=== PATIENT | male | born 1980 | race Caucasian/White ===

== ENCOUNTER 2016-10-24 11:48 | Emergency (ER) | payer OTHER ==
[2016-10-24] MEDS ORDERED: LIDOCAINE HCL 20 ML VIAL ONE (12:00)
[2016-10-24] MEDS ORDERED: DIPHTH,PERTUSS(ACELL),TET VAC 0.5 ML VIAL IM ONE ×2 (12:26→12:38)
[2016-10-24] MEDS ORDERED: NORMAL SALINE 1,000 ML IV ONE (12:29)
[2016-10-24 12:56] VITALS: BP 132/96
[2016-10-24 12:58] LABS: Hematocrit 43.6 % (42.0-52.0); Mean Cell Volume 83.5 fl (78-100); Mean Corpuscular Hemoglobin 28.7 pg (27-31); Mean Corpuscular Hgb Conc 34.4 g/dl (32-36); Mean Platelet Volume 10.6 fl (6.0-9.5); Neutrophil # 13.3 K/mm3 (1.3-6.0); Neutrophil % 82.8 % (42-75.0); Platelet Count 286 K/mm3 (150-450); Red Blood Count 5.22 M/mm3 (4.7-6.0); Red Cell Distribution Width 13.5 % (11.5-14.0); White Blood Count 16.1 K/mm3 (4.0-10.5)
[2016-10-24 13:07] LABS: Anion Gap 17.3 mmol/L (6.8-13.8); BUN/Creatinine Ratio 15.7 (9.0-21.6); Calcium * 8.8 mg/dL (7.9-10.9); Carbon Dioxide 21.2 mmol/L (24-32.6); Estimated Creat Clear 81.2; Potassium 3.5 mmol/L (3.4-4.6)
[2016-10-24 13:10] LABS: INR 1.09 INR (0.90-1.10); Prothrombin Time (Patient) 11.3 Seconds (9.4-11.4)
[2016-10-24] MEDS ORDERED: ONDANSETRON HCL/PF 2 MG/ML VIAL ONE (13:16)
[2016-10-24] MEDS ORDERED: ONDANSETRON HCL/PF 2 MG/ML VIAL IV ONE ×2 (13:17→13:25)
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
[2016-10-24] MEDS ORDERED: fentaNYL CITRATE/PF 50 MCG/ML AMPUL ONE (13:22)
[2016-10-24] MEDS ORDERED: fentaNYL CITRATE/PF 50 MCG/ML AMPUL IV ONE (13:25)
== END 2016-10-24 13:51 | disposition short-term general hospital (02) ==
LOC: EDBD → ER 11:48
DX: S01.81XA Laceration without foreign body of other part of head, initial encounter (principal); S06.4X0A Epidural hemorrhage without loss of consciousness, initial encounter; S02.80XB Fracture of other specified skull and facial bones, unspecified side, initial encounter for open fracture; Y00.XXXA Assault by blunt object, initial encounter; Y92.149 Unspecified place in prison as the place of occurrence of the external cause; Z23 Encounter for immunization